=== PATIENT | female | born 1945 | race Two or more races ===

== ENCOUNTER → 2016-10-20 | Outpatient (CLI) | payer OTHER | LOC: BRMIMAGING 10:10 | PROVIDERS: ATTEND Family Medicine | DX: R10.30 Lower abdominal pain, unspecified (principal) | CPT/HCPCS: 74022-PO ==

== ENCOUNTER → 2018-02-27 | Outpatient (CLI) | payer OTHER | LOC: BRMIMAGING 14:32 | PROVIDERS: ATTEND Family Medicine | DX: Z12.31 Encounter for screening mammogram for malignant neoplasm of breast (principal) ==